=== PATIENT | male | born 1975 | race Two or more races ===

== ENCOUNTER 2024-01-20 20:13 | Emergency (ER) | payer MEDICAID ==
[~2024-01-20] VITALS: Ht 167.6 cm; Wt 81.8 kg
[2024-01-20] MEDS: IBUPROFEN 600 MG TABLET PO ONE (21:45)
[2024-01-20] MEDS ORDERED: CEPH-558 PO (22:47)
[2024-01-20] MEDS ORDERED: SULF-261 PO (22:47)
[2024-01-20] MEDS: LIDOCAINE/PF 1% 2 ML VIAL IM ONE (23:38)
[2024-01-20] MEDS: ACETAMINOPHEN 500 MG TABLET PO ONE (23:38)
[2024-01-20] MEDS: SULFAMETHOX/TRIMETH DS 800-160 MG/TABLET PO ONE (23:38)
[2024-01-20] MEDS: LIDOCAINE 1% 10 ML VIAL SQ ONE (23:39)
[2024-01-20] MEDS: CefTRIAXone SODIUM 1 GM/VIAL IM ONE (23:39)
[2024-01-21 00:04] VITALS: BP 134/76; PULSE 79; RESP 16; TEMP 98.3
== END 2024-01-21 00:04 | disposition home or self-care (01) ==
LOC: EMS 20:16
DX: L02.213 Cutaneous abscess of chest wall (principal); L03.313 Cellulitis of chest wall
CPT/HCPCS: 99284; 10060; 87205; 87070; 96372; J0696; J3490 ×2